=== PATIENT | female | born 1965 | race Caucasian/White ===

== ENCOUNTER 2019-10-31 00:36 | Outpatient (CLI) | payer BC, SELFPAY ==
[2019-10-31 18:40] LABS: SARS-CoV-2 RNA PCR Negative
== END 2019-10-31 00:37 | disposition home or self-care (01) ==
PROVIDERS: PCP Emergency Medicine; Visit Provider Internal Medicine Gastroenterology
DX: Z01.818 Encounter for other preprocedural examination (principal); Z11.59 Encounter for screening for other viral diseases
CPT/HCPCS: 87635; C9803; U0003

== ENCOUNTER 2019-11-03 01:09 | Day surgery (SDC) | payer BC, SELFPAY ==
[2019-10-30 10:18] VITALS: BMI 34.7
[2019-11-03 08:10] VITALS: BP 140/82; PULSE 76; RESP 14; TEMP 36.5; O2SAT 98; BMI 34.7
[2019-11-03] MEDS: LACTATED RINGERS 1,000 ML 150 ML IV CONT (08:19)
[2019-11-03 08:28] LABS: Glucose Point of Care 121 (65-105)
--- NOTE | 2019-11-03 08:34 | PM.HPGS ---
History of Present Illness History of Present Illness Consent: Risks, benefits, and alternatives have been discussed and questions answered. Patient agrees to proceed with procedure. Chief complaint: Hx Colon Polyps/ Gerd Narrative: Jaclyn Castanon is a 54 year old femaleWith chronic and somewhat refractory reflux. If she skips 1 day of medication she has heartburn. She has a strong family history of colon cancer including her mother and maternal grandmother PMFSH Family History Family History Other Cerebrovascular accident Diabetes mellitus Family history of cardiovascular disease Family history of gout Hypertension Social History Social History Smoking status: Former smoker Smoking end date: 06/14/02 Alcohol intake: never Meds Home Medications and Allergies Home Medications Medication Instructions Recorded Confirmed Type Vit D 1,000 PO DAILY 10/30/19 History atorvastatin 10 mg PO DAILY 10/30/19 11/03/19 History esomeprazole magnesium 40 mg PO DAILY 10/30/19 11/03/19 History lisinopril 10 mg PO DAILY 10/30/19 11/03/19 History metformin 1,000 mg PO DAILY 10/30/19 11/03/19 History Allergies Allergy/AdvReac Type Severity Reaction Status Date / Time adhesive Allergy Unknown Verified 11/03/19 08:08 morphine Allergy Unknown Verified 11/03/19 08:08 Vital Signs Vital Signs - 24 hr 11/03/19 08:10 Temperature 36.5 C Pulse Rate 76 Respiratory Rate 14 Blood Pressure 140/82 Pulse Oximetry 98 Exam Const: General: alert Orientation/consciousness: patient oriented x3 Resp: Auscultation: clear to auscultation bilaterally Cardio: Rhythm: regular rhythm GI: GI Palp: Yes Soft to palpation and No Tenderness to palpation present (GI) Neuro: General: patient oriented x3 Assessment and Plan Assessment and plan (1) Colon cancer screening: Code(s): Z12.11 - Encounter for screening for malignant neoplasm of colon Status: Acute Assessment and Plan: Colonoscopy with possible biopsy or polypectomy or cautery or injection of substances. (2) GERD (gastroesophageal reflux disease): Code(s): K21.9 - Gastro-esophageal reflux disease without esophagitis Status: Acute Assessment and Plan: EGD with possible biopsy or dilatation or cautery.
--- NOTE | 2019-11-03 08:50 | WPDANESEPPF ---
Anes - Initial Pre Proc Eval Procedure: Operation Date: 11/03/19 09:00 Proposed Procedures p Esophagogastroduodenoscopy & Screening Colonoscopy - Noah Garcia MD Date/Time: 11/03/19 08:50 Surgeon: Noah Garcia MD Pre Op Diagnosis: Hx Colon Polyps/ Gerd Patient Data Age: 54 Gender: F Height: 1.57 m Weight: 86.1 kg Last Vital Signs Temp 36.5 C 11/03/19 08:10 Pulse 76 11/03/19 08:10 Resp 14 11/03/19 08:10 BP 140/82 11/03/19 08:10 Pulse Ox 98 11/03/19 08:10 Allergies Allergy/AdvReac Type Severity Reaction Status Date / Time adhesive Allergy Unknown Verified 11/03/19 08:08 morphine Allergy Unknown Verified 11/03/19 08:08 Home Medications Medication Instructions Recorded Confirmed Type Vit D 1,000 PO DAILY 10/30/19 History atorvastatin 10 mg PO DAILY 10/30/19 11/03/19 History esomeprazole magnesium 40 mg PO DAILY 10/30/19 11/03/19 History lisinopril 10 mg PO DAILY 10/30/19 11/03/19 History metformin 1,000 mg PO DAILY 10/30/19 11/03/19 History Laboratory Tests 11/03/19 08:24 POC Capillary Glucose 121 mg/dl H mg/dl (65-105) Patient hx anesthesia problems: none Family hx anesthesia problems: none PMFSH Past Medical History Medical History (Updated 11/03/19 @ 08:52 by Dustin Vidal MD) Anxiety Cancer BREAST, s/p b/l Mastectomy Diabetes GERD (gastroesophageal reflux disease) HTN (hypertension) Obesity Family History Family History Other Cerebrovascular accident Diabetes mellitus Family history of cardiovascular disease Family history of gout Hypertension Social History Social History Smoking status: Former smoker Smoking end date: 06/14/02 Alcohol intake: never Anes - Eval Final PreProcedure Day of Procedure 11/03/19 08:50 Patient weight: obese Heart: regular rate and rhythm Lungs: clear to auscultation and normal air movement Airway: Mallampati scale class II Neurological: alert and oriented Last oral intake: >/= 8 hours ASA classification: III Emergent: no Anesthetic plan: proceed Anesthesia type and monitoring: general GIVS Informed Consent: The patient's anesthetic plan and its attendant risks and benefits were discussed with the patient/family/POA. Questions were solicited and answers provided to the satisfaction of the patient/family/POA.
[2019-11-03] MEDS: SIMETHICONE ORAL SUSPENSION 20 MG/0.3 ML 30 ML BOTTLE 0.6 ML IRRIGATION (09:29)
[2019-11-03 09:37] VITALS: BP 102/65; PULSE 92; RESP 16; O2SAT 97
[2019-11-03 09:47] VITALS: BP 112/83; PULSE 95; RESP 16; O2SAT 99
[2019-11-03 09:57] VITALS: BP 112/57; PULSE 83; RESP 16; O2SAT 100
== END 2019-11-03 10:16 | disposition home or self-care (01) ==
PROVIDERS: PCP Emergency Medicine; Visit Provider Internal Medicine Gastroenterology
PROC: 0DJ08ZZ Inspection of Upper Intestinal Tract, Via Natural or Artificial Opening Endoscopic (ICD-10-PCS; CPT 43235; principal; 2019-11-03 09:00)
DX: Z12.11 Encounter for screening for malignant neoplasm of colon (principal); D12.4 Benign neoplasm of descending colon; K57.30 Diverticulosis of large intestine without perforation or abscess without bleeding; K21.9 Gastro-esophageal reflux disease without esophagitis; I10 Essential (primary) hypertension; E11.9 Type 2 diabetes mellitus without complications; F41.9 Anxiety disorder, unspecified; Z85.3 Personal history of malignant neoplasm of breast; E66.9 Obesity, unspecified; Z68.34 Body mass index [BMI] 34.0-34.9, adult; Z87.891 Personal history of nicotine dependence; Z79.84 Long term (current) use of oral hypoglycemic drugs
CPT/HCPCS: 45385; 43235; 88305; J2704; J7120